=== PATIENT | male | born 1955 | race Caucasian/White ===

== ENCOUNTER 2021-11-26 09:17 | Emergency (ER) | payer MEDICARE, MEDICAID ==
[~2021-11-26] VITALS: Ht 162.6 cm; Wt 70.0 kg
[~2021-11-26 09:17] MED LIST: ASPI-1093 PO; LISI-486 PO; NAPR-54 PO; SIMV-372 PO; SULF-954 PO
[2021-11-26 09:57] VITALS: BP 183/80
--- NOTE | 2021-11-26 14:38 | NUR ---
DR SANDHU ATTEMPTED TO BRING PT BACK, NOT FOUND IN LOBBY/OUTSIDE
--- NOTE | 2021-11-26 15:01 | NUR ---
2ND ATTEMPT TO BRING PT BACK, NOT FOUND IN LOBBY/OUTSIDE
--- NOTE | 2021-11-26 15:26 | NUR ---
LAST ATTEMPT TO BRING PT BACK, NOT FOUND IN LOBBY/OUTSIDE. PATIENT LEFT WITHOUT BEING SEEN BY DR. SANDHU. NO FURTHER CARE PROVIDED FOR PATIENT.
== END 2021-11-26 14:38 | disposition left against medical advice (07) ==
LOC: MED 09:17
DX: R05.9 Cough, unspecified (principal); M54.6 Pain in thoracic spine; Z53.21 Procedure and treatment not carried out due to patient leaving prior to being seen by health care provider
CPT/HCPCS: 81002